=== PATIENT | female | born 1965 | race Caucasian/White ===

== ENCOUNTER 2019-01-07 11:45 | Emergency (ER) | payer OTHER ==
[~2019-01-07] VITALS: Ht 144.8 cm; Wt 99.1 kg
[2019-01-07 11:47] VITALS: Ht 144.8 cm; Wt 99.1 kg
[2019-01-07 12:27] LABS: BASOPHILS 0.1 % (0-2); EOSINOPHILS 0 % (0-7); HEMATOCRIT 40.7 % (36.0-48.0); HEMOGLOBIN 14.5 g/dL (12-16); IMMATURE GRANULOCYTES 0.2 % (0-5); LYMPHOCYTES 7.3 % (15-50); MCH 30.4 pg (26.0-34.0); MCHC 35.6 g/dL (31.0-37.0); MCV 85.3 fL (80.0-100.0); MEAN PLATELET VOLUME 12.6 fL (7.4-10.4); MONOCYTES 2.2 % (2-11); NEUTROPHILS 90.2 % (40-80); PLATELET COUNT 418 10x3/uL (130-400); RBC 4.77 10x6/uL (4.00-5.40); RDW 16.6 % (11.5-14.5); WBC 16.2 10x3/uL (4.8-10.8)
[2019-01-07 12:42] LABS: APPEARANCE CLEAR (CLEAR); BILIRUBIN NEGATIVE (NEGATIVE); COLOR STRAW (YELLOW); GLUCOSE NEGATIVE (NEGATIVE); KETONE NEGATIVE (NEGATIVE); NITRITE NEGATIVE (NEGATIVE); PROTEIN NEGATIVE (NEGATIVE); SPECIFIC GRAVITY 1.005 (1.005-1.020); UROBILINOGEN NORMAL (NORMAL)
[2019-01-07] MEDS ORDERED: LISINOPRIL20 MG PO (13:01)
[2019-01-07] MEDS ORDERED: NORVASC10 MG (13:01)
[2019-01-07] MEDS ORDERED: LASIX40 MG (13:01)
[2019-01-07] MEDS ORDERED: ZOLOFT100 MG PO (13:01)
[2019-01-07] MEDS ORDERED: VITAMIN D31000 UNI2 (13:01)
[2019-01-07] MEDS ORDERED: TOFRANIL50 MG (13:02)
[2019-01-07] MEDS ORDERED: ZYPREXA5 MG PO (13:02)
[2019-01-07] MEDS ORDERED: GLUCOPHAGE500 MG PO (13:02)
[2019-01-07] MEDS ORDERED: MOBIC7.5 MG (13:02)
[2019-01-07] MEDS ORDERED: POTASSIUM99 M1 (13:02)
[2019-01-07] MEDS ORDERED: BAYER CHEWABLE81 MG PO (13:03)
[2019-01-07] MEDS ORDERED: PREDNISONE20 MG PO (13:03)
[2019-01-07 13:18] LABS: APTT 25.8 SECONDS (22.8-39.4); INR 0.92 (0.85-1.17); PROTIME 11.9 SECONDS (11.6-15.0)
[2019-01-07 13:23] LABS: ALBUMIN 3.8 g/dL (3.4-5.0); ANION GAP 14.7 mmol/L (8-16); BILIRUBIN - TOTAL 1.05 mg/dL (0.2-1.3); CALCIUM 9.3 mg/dL (8.5-10.1); CARBON DIOXIDE 23.4 mmol/L (21.0-32.0); CREATININE - SERUM 0.9 mg/dL (0.6-1.3); POTASSIUM - SERUM 4.1 mmol/L (3.5-5.1); PROTEIN - SERUM 8.2 g/dL (6.4-8.2)
[2019-01-07] MEDS ORDERED: CYCLOBENZAPRINE10 MG PO (14:49)
[2019-01-07] MEDS ORDERED: IBUPROFEN800 MG PO (14:49)
[2019-01-07] MEDS ORDERED: ACETAMINOPHEN500 M1 PO (14:49)
[2019-01-07 15:48] VITALS: BP 127/64
== END 2019-01-07 15:25 | disposition home or self-care (01) ==
LOC: D.ER 11:45
PROVIDERS: Family Medicine
DX: R51 Headache (principal); M54.2 Cervicalgia; V43.62XA Car passenger injured in collision with other type car in traffic accident, initial encounter; Y93.89 Activity, other specified; Y92.410 Unspecified street and highway as the place of occurrence of the external cause